=== PATIENT | female | born 1965 | race Caucasian/White ===

== ENCOUNTER 2017-03-23 15:58 | Emergency (ER) | payer OTHER ==
[~2017-03-23] VITALS: Ht 162.6 cm; Wt 70.9 kg
[~2017-03-23 15:58] MED LIST: BUSPAR10 MG PO; DESYREL100 MG PO; GEODON20 MG PO; GEODON80 MG PO; LOPERAMIDE2 MG PO; MUCINEX600 MG PO; OMEPRAZOLE40 M1 PO; PRILOSEC40 MG PO; PROAIR HFA8.5 GM IH; TOPAMAX100 MG PO; TOPAMAX25 MG PO
[2017-03-23 16:09] VITALS: BP 148/83
[2017-03-23] MEDS ORDERED: SEROQUEL200 MG PO (18:15)
[2017-03-23] MEDS ORDERED: ABILIFY15 MG PO (18:15)
[2017-03-23] MEDS ORDERED: SEROQUEL50 MG PO (18:15)
== END 2017-03-23 18:28 | disposition home or self-care (01) ==
LOC: EME 15:58
DX: Z76.0 Encounter for issue of repeat prescription (principal); F31.9 Bipolar disorder, unspecified; F32.9 Major depressive disorder, single episode, unspecified; F41.9 Anxiety disorder, unspecified; F17.200 Nicotine dependence, unspecified, uncomplicated; Z71.6 Tobacco abuse counseling; Z91.040 Latex allergy status; Z88.5 Allergy status to narcotic agent; Z88.2 Allergy status to sulfonamides; Z88.1 Allergy status to other antibiotic agents; Z88.8 Allergy status to other drugs, medicaments and biological substances
CPT/HCPCS: 99281; 99282

== ENCOUNTER 2017-05-21 16:55 | Emergency (ER) | payer OTHER ==
[~2017-05-21] VITALS: Ht 162.6 cm; Wt 72.7 kg
[~2017-05-21 16:55] MED LIST changes: +ABILIFY15 MG PO; +SEROQUEL200 MG PO; +SEROQUEL50 MG PO
[2017-05-21] MEDS ORDERED: ABILIFY15 MG PO (18:54)
[2017-05-21] MEDS ORDERED: SEROQUEL12.5 MG PO (18:54)
[2017-05-21 19:06] VITALS: BP 147/98
== END 2017-05-21 19:07 | disposition home or self-care (01) ==
LOC: EME 16:55
DX: Z76.0 Encounter for issue of repeat prescription (principal); T43.596A Underdosing of other antipsychotics and neuroleptics, initial encounter; Z91.128 Patient's intentional underdosing of medication regimen for other reason; F41.9 Anxiety disorder, unspecified; F31.9 Bipolar disorder, unspecified; J45.909 Unspecified asthma, uncomplicated; F17.200 Nicotine dependence, unspecified, uncomplicated
CPT/HCPCS: 81003; 90839; 99281; 99284

== ENCOUNTER 2017-07-03 17:56 | Emergency (ER) | payer OTHER ==
[~2017-07-03] VITALS: Ht 162.6 cm; Wt 75.4 kg
[~2017-07-03 17:56] MED LIST changes: +SEROQUEL12.5 MG PO
[2017-07-03 20:06] LABS: HEMATOCRIT 40.5 % (36.0-46.0); HEMOGLOBIN 14.4 G/DL (11.9-15.5); MCH 34.3 PG (29.0-34.0); MCHC 35.6 G/DL (30.0-36.0); MCV 96.4 FL (83-99); PLATELET COUNT 211 K/uL (156-360); RBC DIS.WIDTH-CV 11.7 % (11.8-14.6); RBC DIS.WIDTH-SD 41.2 % (39-53); WHITE BLOOD COUNT 7.5 K/uL (4.1-10.2)
[2017-07-03 20:21] LABS: CHLORIDE 107 mEq/L (99-109); POTASSIUM 3.7 mEq/L (3.7-5.4); SODIUM 142 mEq/L (136-147)
[2017-07-03 20:23] LABS: GLUCOSE 89 mg/dL (70-99)
[2017-07-03 20:26] LABS: SERUM ETHYL ALCOHOL < 10 mg/dL
[2017-07-03 20:27] LABS: CREATININE 0.8 mg/dL (0.6-1.3); GFR ESTIMATE (CALCULATED) > 59 mL/min/
[2017-07-03 20:28] LABS: UREA NITROGEN (BUN) 5 mg/dL (9-23)
[2017-07-03 20:31] LABS: BILIRUBIN NEGATIVE; BLOOD NEGATIVE; COLOR STRAW ((YELLOW)); GLUCOSE (STRIP) NEGATIVE; KETONES NEGATIVE; LEUKOCYTES NEGATIVE; NITRITE NEGATIVE; PROTEIN (STRIP) NEGATIVE; SPECIFIC GRAVITY 1.003 (1.000-1.030); UROBILINOGEN 0.2 MG/DL (0.2-1.0)
[2017-07-03 20:33] LABS: APPEARANCE CLEAR ((CLEAR)); UCUL ADDED? NO
[2017-07-03 20:41] LABS: AMPHETAMINE NEGATIVE (500 ng/mL); BARBITURATES NEGATIVE (200 ng/mL); BENZODIAZEPINES NEGATIVE (150 ng/mL); BUPRENORPHINE NEGATIVE (10 ng/mL); COCAINE NEGATIVE (150 ng/mL); METHADONE NEGATIVE (200 ng/mL); METHAMPHETAMINE NEGATIVE (500 ng/mL); OPIATES (MORPHINE) NEGATIVE (100 ng/mL); OXYCODONE NEGATIVE (100 ng/mL); PHENCYCLIDINE NEGATIVE (25 ng/mL); PROPOXYPHENE NEGATIVE (300 ng/mL); THC CANNABINOIDS NEGATIVE (50 ng/mL); TRICYCLIC ANTIDEPRESSANTS NEGATIVE (300 ng/mL)
[2017-07-03 23:19] VITALS: BP 139/90
== END 2017-07-03 23:20 ==
LOC: EME 17:56
PROVIDERS: Emergency Medicine
DX: F31.32 Bipolar disorder, current episode depressed, moderate (principal); F43.10 Post-traumatic stress disorder, unspecified; F41.9 Anxiety disorder, unspecified; Z91.14 Patient's other noncompliance with medication regimen; S50.812A Abrasion of left forearm, initial encounter; S50.811A Abrasion of right forearm, initial encounter; X78.9XXA Intentional self-harm by unspecified sharp object, initial encounter; J45.909 Unspecified asthma, uncomplicated; F17.200 Nicotine dependence, unspecified, uncomplicated
CPT/HCPCS: 80048; 81003; 85027; 90837; 99281; 99285; G0480

== ENCOUNTER 2017-10-22 15:36 | Emergency (ER) | payer OTHER ==
[~2017-10-22] VITALS: Ht 162.6 cm; Wt 75.8 kg
[2017-10-22] MEDS ORDERED: MEDROL DOSEPAK4 MG PO (16:39)
[2017-10-22 17:19] VITALS: BP 155/91
== END 2017-10-22 17:20 | disposition home or self-care (01) ==
LOC: EXP 15:36 → EME 15:36 → EXP 17:20
PROC: 2W3DX1Z Immobilization of Left Lower Arm using Splint (ICD-10-PCS; principal; 2017-10-22)
DX: M77.9 Enthesopathy, unspecified (principal); F25.9 Schizoaffective disorder, unspecified; F17.200 Nicotine dependence, unspecified, uncomplicated; Z91.040 Latex allergy status; Z88.1 Allergy status to other antibiotic agents; Z88.2 Allergy status to sulfonamides; Z88.6 Allergy status to analgesic agent; Z88.5 Allergy status to narcotic agent; Z88.8 Allergy status to other drugs, medicaments and biological substances
CPT/HCPCS: 99281; 99284; J1885